=== PATIENT | male | born 1960 | race Caucasian/White ===

== ENCOUNTER 2023-02-06 16:48 | Emergency (ER) | payer BC, OTHER ==
[2023-02-06 17:20] VITALS: BP 136/99; PULSE 97; RESP 20; TEMP 98.2; BMI 37.8
== END 2023-02-06 17:45 | disposition home or self-care (01) ==
LOC: FER 16:48
DX: K62.5 Hemorrhage of anus and rectum (principal); K62.89 Other specified diseases of anus and rectum; K64.5 Perianal venous thrombosis
CPT/HCPCS: 36415; 82272; 99283-25

== ENCOUNTER 2023-10-27 15:49 | Emergency (ER) | payer OTHER, BC ==
[2023-10-27 16:32] VITALS: TEMP 97.6; BMI 40.8
[2023-10-27] MEDS ORDERED: ACETAMINOPHEN INJECTION 100 ML IVPB ONE (17:48)
[2023-10-27] MEDS ORDERED: MAG HYDROX/AL HYDROX/SIMETH 30 ML UNIT-DOSE CUP ONE (17:48)
[2023-10-27] MEDS ORDERED: METOCLOPRAMIDE HCL INJECTION 10 MG/2 ML VIAL ONE (17:48)
[2023-10-27] MEDS ORDERED: ONDANSETRON 4 MG/2 ML VIAL ONE (17:49)
[2023-10-27 18:32] LABS: BASO % 0.6 % (0-2.0); EOS % 1.8 % (0-4.5); HEMATOCRIT 48.8 % (35.4-49); HEMOGLOBIN 17.2 GM/dL (11.7-16.9); LYMPH % 21.3 % (8-40); MCHC 35.3 g/dl (32.0-35.9); MEAN PLT VOLUME 8.6 fl (7.5-11.1); MONO % 9.6 % (3.8-10.2); NEUT % 66.7 % (42.8-82.8); PLATELET COUNT 194 10^3/uL (134-434); RBC 4.78 M/mm3 (4.00-5.60); WHITE BLOOD COUNT 7.5 K/mm3 (4.0-10.0)
[2023-10-27] MEDS: MAG HYDROX/AL HYDROX/SIMETH 30 ML UNIT-DOSE CUP PO ONE (18:32)
[2023-10-27] MEDS: ACETAMINOPHEN 1000 MG/100 ML BAG IVPB ONE (18:32)
[2023-10-27] MEDS: ONDANSETRON 4 MG/2 ML VIAL IVPUSH ONE (18:33)
[2023-10-27] MEDS: METOCLOPRAMIDE HCL INJECTION 10 MG/2 ML VIAL IVPUSH ONE (18:33)
[2023-10-27 18:50] LABS: CHLORIDE 96 mmol/L (98-107); SODIUM 128 mmol/L (136-145)
[2023-10-27 18:52] LABS: CALCIUM 9.4 mg/dL (8.5-10.1)
[2023-10-27 18:53] LABS: ALBUMIN 3.7 g/dl (3.4-5.0); BLOOD UREA NITROGEN 14.9 mg/dL (7-18); CO2 27 mmol/L (21-32); GLUCOSE,RANDOM 80 mg/dL (74-106); MAGNESIUM 2.1 mg/dL (1.8-2.4)
[2023-10-27 18:55] LABS: SGPT/ALT 42 U/L (13-61)
[2023-10-27 18:56] LABS: CREATININE 1.2 mg/dL (0.55-1.3); SGOT/AST 75 U/L (15-37)
[2023-10-27 18:57] LABS: TOT PROT 7.8 g/dl (6.4-8.2)
[2023-10-27 18:58] LABS: BILIRUBIN,TOTAL 1.2 mg/dL (0.2-1)
[2023-10-27 18:59] LABS: ALK PHOS 89 U/L (45-117)
[2023-10-27] MEDS: LACTATED RINGERS SOLUTION 1000 ML INFUS.BAG IV ONE (19:06)
[2023-10-27 19:20] LABS: ANION GAP 5 mmol/L (4-13); POTASSIUM 6.7 mmol/L (3.5-5.1)
[2023-10-27 19:22] VITALS: BP 109/75; PULSE 70; RESP 20
[2023-10-27 21:12] LABS: POTASSIUM 3.4 mmol/L (3.5-5.1)
[2023-10-27 21:13] LABS: CALCIUM 9.3 mg/dL (8.5-10.1)
[2023-10-27 21:14] LABS: BLOOD UREA NITROGEN 15.9 mg/dL (7-18)
[2023-10-27 21:17] LABS: CREATININE 1.1 mg/dL (0.55-1.3)
== END 2023-10-27 21:31 | disposition home or self-care (01) ==
LOC: JER 15:49
PROC: 3E033NZ Introduction of Analgesics, Hypnotics, Sedatives into Peripheral Vein, Percutaneous Approach (ICD-10-PCS; principal; 2023-10-27)
PROC: 3E033GC Introduction of Other Therapeutic Substance into Peripheral Vein, Percutaneous Approach (ICD-10-PCS; 2023-10-27)
PROC: 3E033GC Introduction of Other Therapeutic Substance into Peripheral Vein, Percutaneous Approach (ICD-10-PCS; 2023-10-27)
DX: R07.89 Other chest pain (principal); R06.02 Shortness of breath
CPT/HCPCS: 36415; 71045-TC-FY; 80048; 80053; 83690; 83735; 84484; 85025; 93005; 93010; 99284-25; J0131